=== PATIENT | female | born 1985 | race Hispanic/Latino ===

== ENCOUNTER 2018-10-16 23:25 | Emergency (ER) | payer OTHER ==
[~2018-10-16] VITALS: Ht 152.4 cm; Wt 70.0 kg
[~2018-10-16 23:25] MED LIST: BIRTH CONTROL PO; FERR SULFATE325 MG PO; FIORICET PO; FLINTSTONE VIT PO; GINKGO BILOB120 M1 PO; GINKGO BILOB30 M1 OR; INDOCIN25 MG PO; IRON325 M1 PO; LORATADINE10 M1 PO; LORTAB 7.5 PO; MOTRIN600 MG/TAB PO; NO HOME MEDS; NORCO1 TA1 PO; PRE-NATAL PO; PREDNISONE50 MG PO; PRENATA3 PO; TOBREX OPTH5 ML/BTL OU; TOPIRAMATE50 MG PO
[2018-10-16] MEDS ORDERED: ADDERALL20 MG PO (23:36)
[2018-10-16] MEDS ORDERED: LEVOTHYROXIN25 MC1 PO (23:36)
[2018-10-16] MEDS ORDERED: ADDERALL10 MG PO (23:36)
[2018-10-17] MEDS ORDERED: AMOXICILLIN500 MG PO (00:38)
[2018-10-17] MEDS ORDERED: LORTAB 1010 MG PO (00:38)
[2018-10-17 01:35] VITALS: BP 116/85
== END 2018-10-17 01:40 | disposition home or self-care (01) | DRG 563 ==
LOC: ED 23:25
PROC: 0HQFXZZ Repair Right Hand Skin, External Approach (ICD-10-PCS; principal; 2018-10-16)
PROC: 2W3JX1Z Immobilization of Right Finger using Splint (ICD-10-PCS; 2018-10-16)
DX: S62.521A Displaced fracture of distal phalanx of right thumb, initial encounter for closed fracture (principal); W23.1XXA Caught, crushed, jammed, or pinched between stationary objects, initial encounter; Y92.810 Car as the place of occurrence of the external cause; S61.111A Laceration without foreign body of right thumb with damage to nail, initial encounter

== ENCOUNTER 2018-10-17 15:41 | Emergency (ER) | payer SELFPAY ==
[~2018-10-17] VITALS: Ht 152.4 cm; Wt 70.9 kg
[~2018-10-17 15:41] MED LIST changes: +ADDERALL10 MG PO; +ADDERALL20 MG PO; +AMOXICILLIN500 MG PO; +LEVOTHYROXIN25 MC1 PO; +LORTAB 1010 MG PO
[2018-10-17 18:04] VITALS: BP 117/61
== END 2018-10-17 18:04 | disposition home or self-care (01) | DRG 561 ==
LOC: ED 15:41
DX: S62.521D Displaced fracture of distal phalanx of right thumb, subsequent encounter for fracture with routine healing (principal); S61.111D Laceration without foreign body of right thumb with damage to nail, subsequent encounter

== ENCOUNTER 2018-12-04 10:27 | Emergency (ER) | payer OTHER ==
[~2018-12-04] VITALS: Ht 152.4 cm; Wt 65.0 kg
[2018-12-04 11:03] LABS: URINE BILIRUBIN - DIPSTICK NEGATIVE (NEGATIVE); URINE BLOOD DIPSTICK NEGATIVE (NEGATIVE); URINE COLOR YELLOW; URINE GLUCOSE - DIPSTICK NEGATIVE (NEGATIVE); URINE KETONE NEGATIVE (NEGATIVE); URINE LEUK ESTERASE NEGATIVE (NEGATIVE); URINE NITRITE - DIPSTICK NEGATIVE (Negative); URINE PROTEIN - DIPSTICK NEGATIVE (NEG-TRACE); URINE SPECIFIC GRAVITY <=1.005; URINE UROBILINOGEN - DIPSTICK 0.2 E.U./dL (0.2)
[2018-12-04 11:05] LABS: HEMATOCRIT 43.2 % (37.0-47.0); HEMOGLOBIN 13.9 g/dl (12.0-16.0); IMMATURE GRANULOCYTES 0.4 % (0.0-5.0); MEAN CORPUSCULAR HGB 28.3 pG CALC (26.0-32.0); MEAN CORPUSCULAR HGB CONC 32.2 g/L CALC (32.0-36.0); NEUT# 5.64 thou/uL (2.00-7.15); RED BLOOD COUNT 4.91 mill/uL (4.20-5.60); RED CELL DISTRI WIDTH 12.1 % (11.5-15.5)
[2018-12-04] MEDS ORDERED: PAXIL30 MG PO (11:19)
[2018-12-04 11:29] LABS: ALKALINE PHOSPHATASE 101 u/l (38-126); ANION GAP 18 (6-22 (CALC)); BUN 10 mg/dL (7-17); BUN/CREATININE RATIO 13 (12-20 (CALC)); CARBON DIOXIDE 21 mmol/l (22-30); CHLORIDE 102 mmol/l (95-108); CREATININE 0.8 mg/dL (0.5-1.0); GFR > 60 ML/MIN (>=60 (CALC)); GFR FOR AFR.AMER. > 60 ML/MIN (>=60 (CALC)); LIPASE 75 u/l (23-300); POTASSIUM 3.8 mmol/l (3.5-5.1); SGOT/AST 24 u/l (14-36); SODIUM 138 mmol/l (137-146)
[2018-12-04 11:31] LABS: TOTAL PROTEIN 8.7 g/dL (6.3-8.2)
[2018-12-04 11:32] LABS: ALBUMIN 4.9 g/dL (3.2-5.0)
[2018-12-04 11:50] VITALS: BP 142/98
== END 2018-12-04 12:12 | disposition home or self-care (01) ==
LOC: ED 10:27
PROVIDERS: Family Medicine
DX: R10.13 Epigastric pain (principal); E03.9 Hypothyroidism, unspecified; R11.2 Nausea with vomiting, unspecified; R19.7 Diarrhea, unspecified; T43.226A Underdosing of selective serotonin reuptake inhibitors, initial encounter

== ENCOUNTER 2019-08-30 08:53 | Emergency (ER) | payer OTHER ==
[~2019-08-30] VITALS: Ht 152.4 cm; Wt 90.0 kg
[~2019-08-30 08:53] MED LIST changes: +PAXIL30 MG PO
[2019-08-30] MEDS ORDERED: WELLBUTRIN SR100 MG PO (09:43)
[2019-08-30 10:16] LABS: URINE BILIRUBIN - DIPSTICK NEGATIVE (NEGATIVE); URINE BLOOD DIPSTICK NEGATIVE (NEGATIVE); URINE COLOR YELLOW; URINE GLUCOSE - DIPSTICK NEGATIVE (NEGATIVE); URINE KETONE NEGATIVE (NEGATIVE); URINE LEUK ESTERASE NEGATIVE (NEGATIVE); URINE NITRITE - DIPSTICK NEGATIVE (Negative); URINE PROTEIN - DIPSTICK NEGATIVE (NEG-TRACE); URINE SPECIFIC GRAVITY <=1.005; URINE UROBILINOGEN - DIPSTICK 0.2 E.U./dL (0.2)
[2019-08-30 10:22] LABS: HEMATOCRIT 40.5 % (37.0-47.0); IMMATURE GRANULOCYTES 0.3 % (0.0-5.0); MEAN CELL VOLUME 85.1 fL CALC (80.0-100.0); MEAN CORPUSCULAR HGB 27.3 pG CALC (26.0-32.0); MEAN CORPUSCULAR HGB CONC 32.1 g/L CALC (32.0-36.0); NEUT# 5.41 thou/uL (2.00-7.15); RED BLOOD COUNT 4.76 mill/uL (4.20-5.60); RED CELL DISTRI WIDTH 13.9 % (11.5-15.5)
[2019-08-30 10:28] LABS: ALBUMIN 4.6 g/dL (3.2-5.0); ALKALINE PHOSPHATASE 141 u/l (38-126); AMYLASE 97 u/l (30-110); ANION GAP 16 (6-22 (CALC)); BILIRUBIN, TOTAL 0.7 mg/dL (0.0-1.4); BUN 7 mg/dL (7-17); BUN/CREATININE RATIO 10 (12-20 (CALC)); CARBON DIOXIDE 24 mmol/l (22-30); CHLORIDE 99 mmol/l (95-108); CREATININE 0.6 mg/dL (0.5-1.0); GFR > 60 ML/MIN (>=60 (CALC)); GFR FOR AFR.AMER. > 60 ML/MIN (>=60 (CALC)); LIPASE 120 u/l (23-300); POTASSIUM 3.9 mmol/l (3.5-5.1); SODIUM 135 mmol/l (137-146); TOTAL PROTEIN 8.5 g/dL (6.3-8.2)
[2019-08-30 10:30] LABS: SGOT/AST 193 u/l (14-36)
[2019-08-30] MEDS ORDERED: BACTRIM DS1 TAB PO (10:35)
[2019-08-30 12:15] VITALS: BP 109/64
== END 2019-08-30 12:34 | disposition home or self-care (01) ==
LOC: ED 08:53
PROVIDERS: Emergency Medicine
DX: F41.9 Anxiety disorder, unspecified (principal); R79.89 Other specified abnormal findings of blood chemistry; R07.89 Other chest pain

== ENCOUNTER 2019-09-04 12:51 | Emergency (ER) | payer OTHER ==
[~2019-09-04] VITALS: Ht 152.4 cm; Wt 95.0 kg
[~2019-09-04 12:51] MED LIST changes: +BACTRIM DS1 TAB PO; +WELLBUTRIN SR100 MG PO
[2019-09-04 14:27] LABS: URINE BLOOD DIPSTICK NEGATIVE (NEGATIVE); URINE COLOR YELLOW; URINE GLUCOSE - DIPSTICK NEGATIVE (NEGATIVE); URINE KETONE NEGATIVE (NEGATIVE); URINE LEUK ESTERASE NEGATIVE (NEGATIVE); URINE NITRITE - DIPSTICK NEGATIVE (Negative); URINE PROTEIN - DIPSTICK NEGATIVE (NEG-TRACE); URINE SPECIFIC GRAVITY 1.025
[2019-09-04 14:29] LABS: URINE BILIRUBIN - DIPSTICK SMALL (NEGATIVE)
[2019-09-04 14:37] LABS: HEMATOCRIT 40.2 % (37.0-47.0); HEMOGLOBIN 12.9 g/dl (12.0-16.0); IMMATURE GRANULOCYTES 0.7 % (0.0-5.0); MEAN CELL VOLUME 84.3 fL CALC (80.0-100.0); MEAN CORPUSCULAR HGB CONC 32.1 g/L CALC (32.0-36.0); NEUT# 5.02 thou/uL (2.00-7.15); RED BLOOD COUNT 4.77 mill/uL (4.20-5.60); RED CELL DISTRI WIDTH 14.3 % (11.5-15.5)
[2019-09-04 15:00] LABS: ALBUMIN 4.2 g/dL (3.2-5.0); ALKALINE PHOSPHATASE 151 u/l (38-126); ANION GAP 18 (6-22 (CALC)); BILIRUBIN, TOTAL 0.5 mg/dL (0.0-1.4); BUN 9 mg/dL (7-17); BUN/CREATININE RATIO 10 (12-20 (CALC)); CHLORIDE 99 mmol/l (95-108); CREATININE 0.9 mg/dL (0.5-1.0); GFR > 60 ML/MIN (>=60 (CALC)); GFR FOR AFR.AMER. > 60 ML/MIN (>=60 (CALC)); POTASSIUM 3.9 mmol/l (3.5-5.1); SGOT/AST 232 u/l (14-36); SODIUM 132 mmol/l (137-146); TOTAL PROTEIN 7.8 g/dL (6.3-8.2)
[2019-09-04 15:09] LABS: CARBON DIOXIDE 19 mmol/l (22-30)
[2019-09-04 15:42] LABS: TSH, 3RD GENERATION 3.29 uIU/mL (0.47 - 4.68)
[2019-09-04 16:15] VITALS: BP 111/60
== END 2019-09-04 16:15 | disposition home or self-care (01) ==
LOC: ED 12:51
PROVIDERS: Family Medicine
DX: J11.1 Influenza due to unidentified influenza virus with other respiratory manifestations (principal); R74.8 Abnormal levels of other serum enzymes; L73.9 Follicular disorder, unspecified; E03.9 Hypothyroidism, unspecified

== ENCOUNTER 2020-07-08 17:19 | Emergency (ER) | payer OTHER ==
[~2020-07-08] VITALS: Ht 152.4 cm; Wt 90.0 kg
[2020-07-08] MEDS ORDERED: PAROXETINE HCL40 MG PO (19:27)
[2020-07-08] MEDS ORDERED: TROKENDI XR100 MG PO (19:28)
[2020-07-08] MEDS ORDERED: BIRTH CONTROL (19:29)
[2020-07-08] MEDS ORDERED: TORADOL PO (20:30)
[2020-07-08 20:42] VITALS: BP 138/89
== END 2020-07-08 20:42 | disposition home or self-care (01) ==
LOC: ED 17:19
DX: M25.511 Pain in right shoulder (principal)

== ENCOUNTER 2021-03-03 09:56 | Emergency (ER) | payer OTHER ==
[~2021-03-03] VITALS: Ht 152.4 cm; Wt 90.0 kg
[~2021-03-03 09:56] MED LIST changes: +BIRTH CONTROL; +PAROXETINE HCL40 MG PO; +TORADOL PO; +TROKENDI XR100 MG PO
[2021-03-03 10:42] LABS: URINE BILIRUBIN - DIPSTICK NEGATIVE (NEGATIVE); URINE BLOOD DIPSTICK LARGE (NEGATIVE); URINE GLUCOSE - DIPSTICK NEGATIVE (NEGATIVE); URINE KETONE 15 mg/dL (NEGATIVE); URINE PROTEIN - DIPSTICK >=300 mg/dL (NEG-TRACE); URINE SPECIFIC GRAVITY 1.025
[2021-03-03 10:43] LABS: URINE BACTERIA FEW hpf; URINE COLOR RED; URINE EPITHELIAL CELLS FEW EPI/hpf (0-FEW); URINE LEUK ESTERASE SMALL (NEGATIVE); URINE NITRITE - DIPSTICK POSITIVE (Negative); URINE RBC TNTC RBC/hpf (0-5)
[2021-03-03] MEDS ORDERED: NAPROXEN500 MG PO (11:23)
[2021-03-03 11:52] VITALS: BP 120/74
== END 2021-03-03 11:52 | disposition home or self-care (01) | DRG 605 ==
LOC: ED 09:56
PROVIDERS: Emergency Medicine
PROC: 0HQ1XZZ Repair Face Skin, External Approach (ICD-10-PCS; principal; 2021-03-03)
DX: S01.81XA Laceration without foreign body of other part of head, initial encounter (principal); S13.9XXA Sprain of joints and ligaments of unspecified parts of neck, initial encounter; V59.40XA Driver of pick-up truck or van injured in collision with unspecified motor vehicles in traffic accident, initial encounter